=== PATIENT | male | born 1935 | race Two or more races ===

== ENCOUNTER → 2016-12-06 | Outpatient (CLI) | payer MEDICARE, MEDICAID ==
[~2016-12-06] MED LIST: ACET325T14 PO; ALLO100T30 PO; ALLO300T PO; ALPR0.25 PO; ASPI-496 PO; ATEN25TA PO; ATOR40TA PO; CARV12.52 PO; CARV12.543 PO; CARV6.2512 PO; CIPR500T87 PO; DOCU-30 PO; ERTA1VIA IV; FINA5TAB4 PO; FURO-93 PO; HYDR-3240 PO; ISOS30TA8 PO; LEVO500T33 PO; LISI40TA PO; LISI5TAB7 PO; NITR0.4T8 SL; NITR100C6 PO; POTA20TA14 PO; TAMS-11 PO; TAMS0.4C2 PO; TICA90TA PO
== END | disposition home or self-care (01) ==
LOC: CVU 07:00
PROVIDERS: ATTEND Internal Medicine Cardiovascular Disease
DX: R94.39 Abnormal result of other cardiovascular function study (principal)
CPT/HCPCS: 93925

== ENCOUNTER 2019-10-26 18:07 | Emergency (ER) | payer MEDICARE, MEDICAID ==
[~2019-10-26] VITALS: Ht 165.1 cm; Wt 82.4 kg
[~2019-10-26 18:07] MED LIST changes: +DOCU-131 PO; -DOCU-30 PO; -LEVO500T33 PO; +LEVO500T47 PO; +METO25TA2 PO; +NITR0.4T28 SL; -NITR0.4T8 SL
--- NOTE | 2019-10-26 18:54 | NUR ---
[employer]: PT TO ROOM
[2019-10-26] MEDS ORDERED: DOXA2TAB9 PO (19:09)
[2019-10-26] MEDS ORDERED: AZIT250T89 PO (19:09)
[2019-10-26] MEDS ORDERED: FURO-93 PO (19:09)
--- NOTE | 2019-10-26 19:10 | NUR ---
THIS IS A 84 YO M W/ C/O HIGH BP AT HOME, HEADACHE AND DIZZINESS THAT STARTED TODAY. PT IS ACCOMPANIED BY DAUGHTER IN LAW. DAUGHTER IN LAW REPORTS PT TOOK PRESCRIBED METOPROLOL TODAY. PT IS NORMOTENSIVE NOW. BRADYCARDIC, OTHER VS WDL. PT IS RESTING ON GURNEY W/ CALL LIGHT IN REACH, RESP EVEN AND UNLABORED, NADN. AWAITING ED PROVIDER CARLOS.
[2019-10-26 19:42] LABS: BASOPHILS # (AUTO) 0.02 x10^3/uL (0-0.1); BASOPHILS % (AUTO) 0 % (0-1); EOSINOPHILS # (AUTO) 0.29 x10^3/uL (0-0.4); EOSINOPHILS % (AUTO) 5 % (1-7); LYMPHOCYTES # (AUTO) 1.18 x10^3/uL (1-3.4); LYMPHOCYTES % (AUTO) 21 % (22-44); MD NO; MEAN CORPUSCULAR HEMOGLOBIN 31.3 pg (27.5-34.5); MEAN CORPUSCULAR HGB CONC 33.4 g/dL (33.2-36.2); MEAN CORPUSCULAR VOLUME 93.8 fL (81-97); MEAN PLATELET VOLUME 9.9 fL (7.4-10.4); MONOCYTES # (AUTO) 0.44 x10^3/uL (0.2-0.8); MONOCYTES % (AUTO) 8 % (2-9); NEUTROPHILS # (AUTO) 3.82 x10^3/uL (1.8-6.8); NEUTROPHILS % (AUTO) 66 % (42-75); PLATELET COUNT 131 x10^3/uL (130-400); RED BLOOD COUNT 4.45 x10^6/uL (4.38-5.82); RED CELL DISTRIBUTION WIDTH 13.8 % (9.4-14.8)
[2019-10-26 19:55] LABS: ALBUMIN 3.4 g/dL (3.4-5.0); ANION GAP 6 mmol/L (5-15); CALCIUM 8.4 mg/dL (8.5-10.1); CHLORIDE 109 mmol/L (98-107); CREATININE 1.48 mg/dL (0.7-1.3)
[2019-10-26 19:57] VITALS: BP 142/72
[2019-10-26 19:59] LABS: TROPONIN I < 0.015 ng/mL (0.000-0.045)
--- NOTE | 2019-10-26 20:02 | NUR ---
ALL TESTS RESULTED. PT IS UP FOR RECHECK AT THIS TIME.
--- NOTE | 2019-10-26 20:42 | NUR ---
Patient and daughter in law given discharge instructions and they have confirmed that they understand the instructions. Patient wheeled out in wheelchair to dc desk.
== END 2019-10-26 20:43 | disposition home or self-care (01) ==
LOC: ED 20:00
DX: G30.1 Alzheimer's disease with late onset (principal); F02.80 Dementia in other diseases classified elsewhere, unspecified severity, without behavioral disturbance, psychotic disturbance, mood disturbance, and anxiety; R00.1 Bradycardia, unspecified; R51 Headache; I25.10 Atherosclerotic heart disease of native coronary artery without angina pectoris; I13.0 Hypertensive heart and chronic kidney disease with heart failure and stage 1 through stage 4 chronic kidney disease, or unspecified chronic kidney disease; I50.9 Heart failure, unspecified; N18.2 Chronic kidney disease, stage 2 (mild); K21.9 Gastro-esophageal reflux disease without esophagitis; Z85.46 Personal history of malignant neoplasm of prostate; Z90.49 Acquired absence of other specified parts of digestive tract
CPT/HCPCS: 36415; 80048; 82040; 84484; 85025; 93005; 99284